=== PATIENT | male | born 1955 | race Caucasian/White ===

== ENCOUNTER 2021-09-14 21:40 | Emergency (ER) | payer MEDICARE, SELFPAY ==
[2021-09-14 21:48] VITALS: BP 112/69; BP 126/69; PULSE 94; PULSE 98; RESP 18; TEMP 37.3; O2SAT 92; O2SAT 98; BMI 34.2
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
--- NOTE | 2021-09-14 22:17 | ECG_ITS ---
Test Reason : ETOH Blood Pressure : / mmHG Vent. Rate : 086 BPM Atrial Rate : 086 BPM P-R Int : 178 ms QRS Dur : 144 ms QT Int : 412 ms P-R-T Axes : 000 035 269 degrees QTc Int : 493 ms Normal sinus rhythm Left bundle branch block Abnormal ECG No previous ECGs available Referred By: Josef Faith Electronically Signed By:Ramy Dai
[2021-09-14 22:29] VITALS: BP 126/69; PULSE 95; RESP 18; TEMP 37.3; O2SAT 92
== END 2021-09-15 00:05 | disposition home or self-care (01) ==
LOC: HO.ED 23:03
PROVIDERS: Emergency Provider Internal Medicine
DX: F10.129 Alcohol abuse with intoxication, unspecified (principal); Y90.9 Presence of alcohol in blood, level not specified
CPT/HCPCS: 93005; 99283; 99284